=== PATIENT | male | born 2000 | race Two or more races ===

== ENCOUNTER 2023-12-01 23:26 | Emergency (ER) | payer BC, OTHER ==
[~2023-12-01] VITALS: Ht 182.9 cm; Wt 90.0 kg
[2023-12-02 00:08] VITALS: BP 126/66; TEMP 99
[2023-12-02 00:11] LABS: Basophils # (auto) 0 10 ^3/uL (0-0.2); Basophils % (auto) 0.3 % (0.0-2.0); Eosinophils # (auto) 0.1 10 ^3/uL (0-0.8); Eosinophils % (auto) 1.2 % (0.0-7.0); Hematocrit 45.7 % (41.0-53.0); Hemoglobin 15.6 g/dL (13.5-17.5); Lymphocytes # (auto) 2.2 10 ^3/uL (0.4-5.4); Mean Corpuscular Hemoglobin 32.9 pg (28.0-32.0); Mean Corpuscular Hgb Conc. 34.3 g/dL (32.0-36.0); Monocytes # (auto) 0.6 10 ^3/uL (0-1.3); Monocytes % (auto) 6.2 % (0.0-12.0); Neutrophils # (auto) 6.3 10 ^3/uL (1.6-8.6); Neutrophils % (auto) 68.3 % (37.0-80.0); Nucleated Red Blood Cells % 0.1 %; Red Blood Cells 4.76 10^6/uL (4.5-5.90); Red Cell Distribution Width 12.6 % (11.8-14.3); White Blood Cell 9.2 10^3/uL (4.4-10.8)
[2023-12-02 00:18] LABS: Alanine Aminotransferase 27 U/L (7-40); Albumin 4.6 g/dL (3.2-4.8); Alkaline Phosphatase 53 U/L (46-116); Anion Gap 10 (5-15); Aspartate Aminotransferase 11 U/L (13-40); BUN/Creatinine Ratio 21.2 (10.0-20.0); Bilirubin, Total 0.5 mg/dL (0.2-1.0); Blood Urea Nitrogen 24 mg/dL (9-23); Calcium 9.8 mg/dL (8.7-10.4); Carbon Dioxide 22 mmol/L (20-30); Chloride 107 mmol/L (98-107); Glucose 97 mg/dL (74-106); Potassium 4.1 mmol/L (3.5-5.1); Sodium 139 mmol/L (136-145); Total Protein 7.1 g/dL (5.7-8.2)
[2023-12-02 00:19] LABS: INR 1.04 (0.9-1.15); Partial Thromboplastin Time 22.8 SEC (24.5-34.5)
[2023-12-02 00:20] VITALS: PULSE 80; RESP 14; O2SAT 99
[2023-12-02] MEDS: GABAPENTIN 300 MG CAP PO ONE (00:35)
[2023-12-02 00:44] VITALS: PULSE 77
[2023-12-02] MEDS ORDERED: GABA-1250 PO (01:10)
== END 2023-12-02 01:30 | disposition home or self-care (01) ==
LOC: EDBD 23:26 → ER 23:36
DX: M35.9 Systemic involvement of connective tissue, unspecified (principal)
CPT/HCPCS: 36415; 80053; 83735; 83880; 84484; 85025; 85610; 85730; 93005